=== PATIENT | male | born 1990 | race Caucasian/White ===

== ENCOUNTER 2020-10-12 15:07 | Emergency (ER) | payer OTHER, SELFPAY ==
--- NOTE | 2020-10-12 15:14 | ECG_ITS ---
Test Reason : CHEST PAIN Blood Pressure : / mmHG Vent. Rate : 084 BPM Atrial Rate : 084 BPM P-R Int : 136 ms QRS Dur : 102 ms QT Int : 342 ms P-R-T Axes : 084 072 049 degrees QTc Int : 404 ms Normal sinus rhythm Normal ECG No previous ECGs available Referred By: Paula Long Electronically Signed By:JEN ESTRADA
--- NOTE | 2020-10-12 15:14 | XR_ITS ---
EXAMINATION: XR CHEST CLINICAL INFORMATION: Chest pain COMPARISON: 02/17/2016 TECHNIQUE: 2 views of the chest were obtained. FINDINGS: No significant abnormality is noted involving the heart, lungs, mediastinum, bony thorax or soft tissues. XR/XR chest 2V IMPRESSION: Unremarkable examination.
[2020-10-12 15:23] VITALS: BP 148/93; PULSE 90; RESP 18; TEMP 37; O2SAT 98; BMI 50.3
--- NOTE | 2020-10-12 15:26 | ED.CHESTPAIN ---
HPI - Chest Pain General Chief Complaint: Chest Pain Stated Complaint: CHEST PAIN Time Seen by Provider: 10/12/20 15:14 Source: patient Mode of arrival: ambulatory Limitations: no limitations History of Present Illness HPI narrative: 30-year-old male otherwise healthy presented with 5 days of chest pain, patient describes the pain as a dull, constant for 5 days, localized to the mid chest area without radiation, worsening with deep breath and movement or touching the chest, nothing relieves the pain. No other associated symptoms, patient describes the pain as moderate 6/10, patient declined any recent trauma or strenuous activity to the chest recently. Related Data Allergies Allergy/AdvReac Type Severity Reaction Status Date / Time No Known Allergies Allergy Unverified 07/18/20 17:54 Review of Systems Review of Systems: All other systems are reviewed and are negative Constitutional: Reports as per HPI and Reports no additional constitutional complaints Eyes: Reports as per HPI and Reports no additional eye complaints Reports system reviewed and no additional complaints, except as documented Cardiovascular: Reports as per HPI and Reports no additional cardiovascular complaints Respiratory: Reports as per HPI and Reports no additional respiratory complaints Gastrointestinal: Reports as per HPI and Reports no additional gastrointestinal complaints Genitourinary: Reports no additional female genitourinary complaints Musculoskeletal: Reports no additional musculoskeletal complaints Skin/Breast: Reports system reviewed and no additional complaints, except as docu Psychiatric: Reports no additional psychiatric complaints Endocrine: Reports no additional endocrine complaints Hematologic/Lymphatic: Reports no additional hematologic/lymphatic complaints Allergic/Immunologic: Reports no additional allergic/immunologic complaints Reports system reviewed and no additional complaints, except as documented and Reports Abnormal speech present [facility] Past Medical History Medical History Asthma Social History Social History Advance Directives: No Advance Directives Information Provided: No Physical Exam Vital Signs: Vital Signs: Last Vital Signs Temp 98.6 F 10/12/20 15:23 Pulse 90 10/12/20 15:23 Resp 18 10/12/20 15:23 BP 148/93 H 10/12/20 15:23 Pulse Ox 98 10/12/20 15:23 Body Mass Index 50.3 Vital signs have been reviewed as normal and appeared to be correct. Blood pressure in the high range. Heart rate normal. Respiration rate normal. Temperature normal. Oxygen saturation normal. Appearance: Alert. Oriented X3. No acute distress. Head: Normal external exam. Normocephalic. Atraumatic. No Glaser signs noted. No raccoon eyes noted Eyes: PERRLA. EOMI. Conjunctiva and sclera normal. Eyelids normal. ENT: EAC normal. TM's Normal. Pharynx normal. Uvula midline. Moist mucous membranes. No trismus noted. No drooling noted. No muffled voice noted. Neck: Normal inspection. Neck supple. FROM. No adenopathy. Thyroid Normal. No meningeal signs. No neck mass noted. CVS: Normal heart rate and rhythm. Heart sound normal. No murmurs noted. Pulses normal throughout. Respiratory: No respiratory distress. Painless inspiration. Breath sounds normal. No wheezes/rales/rhonchi noted. Reproducible point of tenderness over the lower half of the sternum, no deformity. No accessory muscle usage noted or decreased air movement noted. Abdomen: Soft and nontender. Bowel sounds normal in all 4 quadrants. No distention noted. No organomegaly noted. No visible injury noted. Back: No CVA tenderness. Full range of motion noted. Skin: Skin warm and dry. Normal skin color. Normal skin turgor. No rashes/lesions/lacerations noted. Extremities: No lower extremity edema. Extremities exhibit normal range of motion. Extremities nontender. Neuro: Oriented X 3. No motor deficit. No sensory deficit. Reflexes normal. MDM - Chest Pain MDM Narrative Medical decision making narrative: 30-year-old male presented with few days of chest pain, patient had a negative troponin, negative D-dimer, unremarkable chest x-ray, unremarkable EKG, pain is reproducible. Will discharge the patient to follow up with PCP. Lab Data Result diagrams: 10/12/20 15:36 10/12/20 15:36 Labs: Lab Results 10/12/20 10/12/20 Range/Units 15:36 15:36 WBC 7.5 (4.8-10.8) X10*3/uL RBC 5.11 (4.60-5.80) X10*6/uL Hgb 15.2 (14.0-18.0) g/dl Hct 46.1 (42-52) % MCV 90.2 (80-98) fL MCH 29.7 (27.0-33.0) pg MCHC 33.0 (31.0-36.0) g/dl RDW 12.5 (11.0-16.0) % Plt Count 190 (160-400) X10*3/uL MPV 10.6 (9.4-12.4) fL Immature Gran % (Auto) 0.1 (0.0-0.4) % Neut % (Auto) 54.9 (45-73) % Lymph % (Auto) 30.8 (20-40) % [place] % (Auto) 9.7 (2-11) % Eos % (Auto) 4.0 (0-4) % Baso % (Auto) 0.5 (0-2) % Lymph # (Auto) 2.3 (1.2-4.9) X10*3/uL [place] # (Auto) 0.7 (0.1-1.2) X10*3/uL Eos # (Auto) 0.3 (0.0-0.4) X10*3/uL Baso # (Auto) 0.0 (0.0-0.2) X10*3/uL Abs Immat Gran (auto) 0.01 (0.00-0.03) X10*3/uL Absolute Neuts (auto) 4.1 (2.0-8.3) X10*3/uL Absolute Nucleated RBC 0.000 (0.0-0.012) X10*3/uL Nucleated RBC % (auto) 0.0 (0.0-0.2) /100WBC D-Dimer < 200 NG/ML Imaging Data Chest x-ray: Radiologist's impression: Mild left hydronephrosis is caused by 0.4 cm calculus located just proximal to the ureterovesical junction. ECG Data ECG #1: Interpretation: Normal sinus rhythm at 84 beats per minutes, normal intervals, no ST-T changes. Discharge Plan Discharge Clinical Impression: Atypical chest pain, Anterior chest wall pain Patient Disposition: Home, Self-Care Instructions: Chest Wall Pain (ED) Additional Instructions: Take Motrin 200 mg every 6 hours if needed for pain and apply heating pad to the tender area of his chest. Referrals: Physician,None [Primary Care Provider] - 2 days Stand Alone Forms: Work/School Release
[2020-10-12 15:46] LABS: Basophils Percent Auto 0.5 % (0-2); Eosinophils Absolute Auto 0.3 X10*3/uL (0.0-0.4); Hematocrit 46.1 % (42-52); Hemoglobin 15.2 g/dl (14.0-18.0); Imm Gran Abs Auto 0.01 X10*3/uL (0.00-0.03); Imm Gran Pct Auto 0.1 % (0.0-0.4); Lymphocytes Absolute Auto 2.3 X10*3/uL (1.2-4.9); Lymphocytes Percent Auto 30.8 % (20-40); MANUAL DIFF FLAG NO; Mean Corpuscular Hemoglobin 29.7 pg (27.0-33.0); Mean Corpuscular Volume 90.2 fL (80-98); Mean Platelet Volume 10.6 fL (9.4-12.4); Monocytes Absolute Auto 0.7 X10*3/uL (0.1-1.2); Monocytes Percent Auto 9.7 % (2-11); Neutrophils Absolute Auto 4.1 X10*3/uL (2.0-8.3); Neutrophils Percent Auto 54.9 % (45-73); Platelet Count 190 X10*3/uL (160-400); Red Blood Count 5.11 X10*6/uL (4.60-5.80); Red Cell Distribution Width 12.5 % (11.0-16.0); White Blood Count 7.5 X10*3/uL (4.8-10.8)
[2020-10-12 15:58] LABS: D Dimer < 200 NG/ML
[2020-10-12 16:19] LABS: Troponin-I High Sensitivity < 3.5 ng/L (<3.5-35.0)
[2020-10-12 16:24] LABS: Anion Gap 13 (12-20); Blood Urea Nitrogen 14 mg/dL (9-16); Calcium 8.9 mg/dL (8.4-10.2); Carbon Dioxide 26 mmol/L (22-29); Chloride 105 mmol/L (96-108); Creatinine Clr Calc Pharmacy 108.1; Estimated Glomerular Filt Rate > 60; Glucose Random 96 mg/dL (60-115); Lipase 28 U/L (8-78); Potassium 4.1 mmol/l (3.3-5.1); Sodium 140 mmol/L (135-145)
== END 2020-10-12 17:08 | disposition home or self-care (01) ==
PROVIDERS: Emergency Provider Emergency Medicine
DX: R07.89 Other chest pain (principal); J45.909 Unspecified asthma, uncomplicated
CPT/HCPCS: 36415; 71046; 80048; 83690; 84484; 85025; 85379; 93005; 99283

== ENCOUNTER 2023-05-30 09:02 | Emergency (ER) | payer BC, SELFPAY ==
[2023-05-30 09:03] VITALS: BP 128/58; PULSE 68; RESP 16; TEMP 36; O2SAT 97; BMI 26.5
--- NOTE | 2023-05-30 09:12 | ED_ITS ---
HPI - General Adult General Chief complaint: General Medical Stated complaint: Blood in stool Time Seen by Provider: 05/30/23 09:11 Source: patient Mode of arrival: ambulatory Limitations: no limitations History of Present Illness HPI narrative: Patient is a 33 year old assigned male at with no reported medical history presenting to the emergency department today with bright red blood in his stool. Patient states that over the last few years he has had bright red blood with his stool and he is concerned about hemorrhoids. Patient denies any dizziness, lightheadedness, abdominal pain, nausea, vomiting, fever, chills, blurry vision, double vision, loss of vision, chest pain, difficulty breathing, shortness of breath, back pain, night sweats, pain with urination, increased urinary frequency, increased urinary urgency, blood in his urine, syncope or a near syncopal episode, recent trauma or falls, bowel incontinence, bladder incontinence, bowel retention, bladder retention, or any other complaints at this time. Onset (ago): year(s) Severity: mild Relieving factors: none Exacerbating factors: none Associated symptoms: denies other symptoms Treatments prior to arrival: none Related Data Allergies Allergy/AdvReac Type Severity Reaction Status Date / Time No Known Allergies Allergy Verified 05/30/23 09:07 Review of Systems Constitutional: Constitutional: Reports no additional constitutional complaints, Denies chills, Denies fever(s) and Denies night sweats Eyes: Eyes: Reports no additional eye complaints, Denies blurry vision, Denies change in vision, Denies diplopia, Denies eye discharge, Denies loss of vision and Denies eye pain ENT: Denies dizziness Cardiovascular: Cardiovascular: Reports no additional cardiovascular complaints, Denies chest pain, Denies lightheadedness, Denies Loss of Consciousness and Denies dyspnea Respiratory: Respiratory: Reports no additional respiratory complaints and Denies dyspnea Gastrointestinal: Gastrointestinal: Reports no additional gastrointestinal complaints, Denies abdominal pain, Denies melena, Reports hematochezia, Denies change in bowel habits and Denies change in stool character Genitourinary: Genitourinary: Reports no additional male genitourinary complaints, Denies hematuria, Denies oliguria, Denies difficulty urinating, Denies dysuria, Denies urinary frequency, Denies urinary hesitancy, Denies urinary incontinence and Denies urinary urgency Musculoskeletal: Musculoskeletal: Reports no additional musculoskeletal complaints, Denies numbness and Denies tingling Neurologic: Denies dizziness, Denies loss of vision, Denies numbness and Denies tingling Psychiatric: Psychiatric: Reports no additional psychiatric complaints Endocrine: Endocrine: Reports no additional endocrine complaints Hematologic/Lymphatic: Hematologic/Lymphatic: Reports no additional hematologic/lymphatic complaints Allergic/Immunologic: Allergic/Immunologic: Reports no additional allergic/immunologic complaints [facility] Past Medical History Attestation statement: The following information was validated with the patient. Source: old records reviewed and nursing notes reviewed Medical History Asthma Social History Social History Smoked in Last 30 Days: Yes Use of substances other than those prescribed or required for medical reasons: Yes Substance Use Type: Marijuana Advance Directives: No Advance Directives Information Provided: Yes Physical Exam ED Vital Signs: Vital Signs - 24 hr 05/30/23 09:03 Temperature 96.8 F Pulse Rate 68 Respiratory Rate 16 Blood Pressure 128/58 L Pulse Oximetry 97 Oxygen Delivery Method Room Air BMI result Body Mass Index 26.5 Const General: cooperative, no acute distress, alert and awake Nutritional Appearance: well nourished Orientation/consciousness: patient oriented x3 Limitations: no limitations HENMT Head: Yes normal to inspection and Yes atraumatic Ears: hearing grossly normal bilaterally and external ears normal General nose exam: Normal external nose present, no nasal discharge noted and no epistaxis Face and sinus: Yes normal facial exam, No abrasion and No laceration Mouth: Normal oral and palatal mucosa present, no drooling and no muffled voice Eyes General: appearance normal, both eyes and all related structures Periorbital: periorbital findings normal Eyelids: Yes eyelids normal Conjunctivae: conjunctivae normal Pupils: Equal, round and reactive pupils present EOM: EOMs intact bilaterally Neck Neck: Yes normal visual inspection, Yes full ROM and Yes no lymphadenopathy Chest Chest palpation & inspection: normal inspection of the chest Resp Effort & Inspection: normal respiratory effort and able to speak in complete sentences GI Rectal Exam - Male: Yes External hemorrhoid(s) present (small at the 3 o'clock position) Neuro General: patient oriented x3 and moves all extremities Cranial nerves: Yes Equal, round and reactive pupils present Cognition (Neuro): normal cognition Motor exam (neuro): 5/5 motor strength present throughout Sensory Exam: Normal double simultaneous stimulation for sensation Coordination: [id number] test normal Extrem General: Yes normal to inspection, Yes full ROM and Yes capillary refill normal Psych Appearance: grossly normal Mental Status: mental status grossly normal Affect: normal affect Attitude: cooperative Thought process: Normal thought process present Thought content: Normal thought content present Insight: Good insight present (Psych) Medical Decision Making Medical Decision Making MDM Narrative: Patient is a 33 year old assigned male at with no reported medical history presenting to the emergency department today with bright red blood in his stool. Patient's physical exam showed a small hemorrhoid as noted in the physical exam portion of this chart. It should be noted that the patient's exam took place with an RN water supervisor. I explained my physical exam findings to the patient. I answered all questions asked by the patient. I stressed the importance of the patient taking his medication as prescribed. I stressed the importance of the patient following up with his primary care provider. I stressed the importance of the patient returning to the emergency department immediately if his symptoms were to worsen or if he were to develop any dizziness, shortness of breath, difficulty breathing, chest pain, blurry vision, loss of vision, nausea, vomiting, abdominal pain, fever, chills, back pain, or any other complaints. Patient verbalized agreement and understanding with this treatment plan and discharge. Differential Diagnosis Differential Diagnoses: The differential diagnosis associated with the presentation includes Hemorrhoid Discharge Plan Discharge Clinical Impression: Hemorrhoids, external Patient Disposition: Home, Self-Care Instructions: Hemorrhoids (DC) Additional Instructions: Follow up with your primary care provider and a general surgeon. Return to the emergency department immediately if your symptoms worsen or if you develop any dizziness, shortness of breath, difficulty breathing, chest pain, blurry vision, loss of vision, nausea, vomiting, abdominal pain, fever, chills, back pain, or any other complaints. Referrals: [facility] [place] General Surgeons [Provider Group] (Call to establish and follow up [facility]. ) [facility] [place]] (Call to establish and follow up with a primary care provider. If you already have a primary care provider, please follow up with them.) [facility] [place] [facility] [place]] (Call to establish and follow up with a primary care provider. If you already have a primary care provider, please follow up with them.) [facility] [place] [Provider Group] (Call to establish and follow up with a primary care provider. If you already have a primary care provider, please follow up with them.) Stand Alone Forms: Work/School Release Interventions: ED Discharge Assessment Last Done: 05/30/23 09:33 Discharge Date/Time: 05/30/23 09:34 Print Language: Kyrgyz
== END 2023-05-30 09:34 | disposition home or self-care (01) ==
PROVIDERS: Emergency Provider Student in an Organized Health Care Education/Training Program
DX: K64.4 Residual hemorrhoidal skin tags (principal)
CPT/HCPCS: 99283; 99284

== ENCOUNTER 2023-12-06 14:15 | Outpatient (AMB) | payer BC, SELFPAY ==
--- NOTE | 2023-12-06 14:34 | MHC.OFFVIS ---
Intake Vital Signs 12/06/23 14:38 Height 5 ft 2 in Weight 152 lb BMI 27.8 BP 142/63 H Blood Pressure Location Lt brachial Position Sitting Pulse 70 Intake Visit Reasons: External hemorrhoid Intake Note: This patient presents for an assessment for external hemorrhoids. Pt c/o; reports rectal bleeding about 7 months ago, reports moderate pain, reports no constipation. 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 He says that he has hemorrhoids for a few years now. He says that the past several months, this had been prolapsing each time he has a bowel movement. He says that he always has to push this back after bowel movements as this comes out all the time after passage of stools. He describes significant discomfort. He says that he used to have occasional bleeding with this hemorrhoids as well. [facility] Medical History (Updated 12/06/23 @ 14:52 by Jerad Ferreira MD) Hemorrhoids that prolapse with straining and require manual replacement back inside anal canal Asthma Surgical History No pertinent past surgical history Social History Substance Use Type: Marijuana Review of Systems Const Denies chills and Denies fever(s) Card Denies chest pain, Denies dyspnea and Denies dyspnea on exertion Resp Denies cough, Denies dyspnea and Denies dyspnea on exertion GI Denies hematochezia and Denies change in bowel habits Denies hematuria and Denies difficulty urinating Musc Denies back pain and Denies limited range of motion Neuro Denies focal weakness and Denies convulsions Psych Denies depression and Denies mood swings Physical Exam Vital Signs: Last Vital Signs Pulse 70 12/06/23 14:38 BP 142/63 H 12/06/23 14:38 BMI result Body Mass Index 27.8 Const General: comfortable and no acute distress Orientation/consciousness: patient oriented x3 Neck Neck: Yes no lymphadenopathy Resp Auscultation: clear to auscultation bilaterally Cardio Rhythm: regular rhythm GI Other: Rectal exam shows external hemorrhoids on the left Palpation (GI): Soft to palpation, nontender and no guarding Neuro General: patient oriented x3 Office Procedures Anoscopy He was in talia-knife position. The anoscope was gently inserted. A full examination of the anal canal was done. He was noted to have a bulky hemorrhoidal column, a mix of internal external on the left side. There were no other lesions. There was no bleeding. There was no fissure. There was no induration on digital exam. There was no significant tenderness [id number] Assessment & Plan Assessment & Plan (1) Hemorrhoids that prolapse with straining and require manual replacement back inside anal canal: Code(s): K64.2 - Third degree hemorrhoids Plan: He describes hemorrhoids as prolapse frequently. He wants to proceed with hemorrhoidectomy in view of the discomfort. I had a long discussion with him about the technique of exam under anesthesia and hemorrhoidectomy. I discussed the risks including but not limited to bleeding and infections and pain, as well as the benefits and alternatives. I reviewed with him what to expect postoperatively. He says he understands and wants to proceed. Coding Level of Care Code New Pt Level 3 (67470) Diagnoses Hemorrhoids that prolapse with straining and require manual replacement back inside anal canal K64.2 CPT Codes Details - CPT: 03216-[id number] ([id number])
[2023-12-06 14:38] VITALS: BP 142/63; PULSE 70; BMI 27.8
== END 2023-12-06 14:49 | disposition home or self-care (01) ==
PROVIDERS: Visit Provider Surgery
DX: K64.2 Third degree hemorrhoids (principal)
CPT/HCPCS: 46600; 99203

== ENCOUNTER → 2023-12-06 14:15 | Outpatient (BNVA) | payer BC, SELFPAY | PROVIDERS: Visit Provider Surgery | DX: K64.2 Third degree hemorrhoids (principal) | CPT/HCPCS: 46600 ==

== ENCOUNTER 2024-01-14 07:07 | Day surgery (SDC) | payer BC, SELFPAY ==
[2024-01-03 10:09] VITALS: BMI 27.8
[2024-01-03 10:17] VITALS: BMI 27.4
[2024-01-14] VITALS (9 sets, daily range): BP systolic 126–158; BP diastolic 66–83; PULSE 69–90; RESP 16–18; TEMP 36.7–37.6; O2SAT 97–100; BMI 27.4
[2024-01-14] MEDS: Lactated Ringers 1,000 ML 80 ML IVCONT (07:50)
--- NOTE | 2024-01-14 08:13 | HO.ANESPROP2 ---
HPI - Anesthesia Eval Consult details Narrative: Internal prolaping Hemmorhoids PMFSH Active Problems Active Problems: All Active Problems (Updated 01/03/24 @ 10:17 by Sunitha Bacon RN) Hemorrhoids that prolapse with straining and require manual replacement back inside anal canal (Acute) Past Medical History Medical History History of heartburn Hemorrhoids that prolapse with straining and require manual replacement back inside anal canal Asthma Family History Family history of problems with anesthesia: No Surgical History Surgical History No pertinent past surgical history History of Problems with Anesthesia: No Social History Social History Household Members Other:: mom Are you a primary animal care provider to a significant other at home: No Do you presently have visiting nurse or other home services: No Tobacco use type: Smokeless Tobacco Use of substances other than those prescribed or required for medical reasons: No Have you been hit, kicked, punched, or otherwise hurt by someone within the past year? If so, by whom?: No Are you DNR?: No Advance Directives: No Advance Directives Information Provided: Yes Advance Directives on File: No Recently lost weight without trying: No Nutrition Risks: No Nutritional Risk Poor oral hygiene: No Meds Allergies Allergy/AdvReac Type Severity Reaction Status Date / Time No Known Allergies Allergy Verified 01/14/24 07:57 Active Medications: Current Medications Lactated Ringer's (Lr) 1,000 mls @ 80 mls/hr IVCONT .[id number] [facility] Last Admin: 01/14/24 07:50 Dose: 80 mls/hr Home Medications Medication Instructions Recorded Confirmed Last Taken Type calcium carbonate 200 mg calcium mg PRN Heartburn 01/03/24 01/03/24 Unknown History (500 mg) chewable tablet (Tums) Exam Height,Weight and Vital Signs: Height 5 ft 2 in Weight 68.039 kg Last Vital Signs Temp 98.1 F 01/14/24 07:56 Pulse 69 01/14/24 07:56 Resp 18 01/14/24 07:56 BP 129/66 01/14/24 07:56 Pulse Ox 98 01/14/24 07:56 O2 Del Method Room Air 01/14/24 07:56 Airway Mallampati Class: II TM Dist: >3cm Neck ROM: Full Loose/Missing/Broken Teeth: Yes (invisalign 2 upper front teeth chipped) Heart: [id number] Lungs: cta b/l Assessment and Plan Assessment Anesthesia Assessment: Anesthesia Plan Discussed, Smoking Cess. Discussed and Chart Reviewed Final Anesthetic Review Family History of Problems with Anesthesia: No History of Problems with Anesthesia: No NPO: Yes ASA Class: II Final Preanesthetic Review: No Changes in Pt Med Stat, Meds/Allgs Chart Reviewed, Consent Obtained/Reviewed and Anes Risks/Benef Reviewed Patient Risk: Intermediate Procedure Risk: Low Anesthetic Plan Anesthetic Plan: GA Disposition: Standard PACU
--- NOTE | 2024-01-14 08:41 | MHC.SHP ---
Pre-Procedural Eval Section A - 24 Hr Update-Section A only Date of Service: 01/14/24 Section B - Complete if H&P > 30 days Chief Complaint: Third degree hemorrhoids Details of Present Illness: has had prolapsing hemorrhoids Relevant Family History (Specify if Yes): No Relevant Social History: None Present Medications: see Short Stay Collaborative assessment Medical History: No relevant PMH Allergies: Allergies Allergy/AdvReac Type Severity Reaction Status Date / Time No Known Allergies Allergy Verified 01/14/24 07:57 Review of Systems Sugical H&P ROS: Negative: Constitution, Cardiovascular, Respiratory, Neurological, Psychiatric, Hem-Onc, Allergic/Immunologic, Gastrointestinal, Genitourinary, Musculoskeletal, Integumentary, Endocrine and Eyes/Ears/Nose/Throat Exam Surgical H&P Exam: Normal: HEENT, Normal: Heart, Normal: Lungs, Normal: Extremities, Normal: Abdomen, Normal: Skin and Normal: Neurological Exam Comment: internal and external hemorrhoids Plan I have reviewed the history and physical and performed a pertinent physical examination on my patient. No changes have occurred unless specified. Time Spent With Patient Time: Total time managing care of this patient today ____ minutes.
--- NOTE | 2024-01-14 09:37 | P.OP_ITS ---
Operative Note Operative Note Date of Service: 01/14/24 Narrative: Preop Diagnosis prolapsing hemorrhoids Postop diagnosis: Prolapsing hemorrhoids, internal external Procedure: Exam under anesthesia hemorrhoidectomy x2 columns Surgeon: Jerad Ferreira MD The patient is a 33-year-old male with a long history of prolapsing hemorrhoids with associated with pain and bleeding. He wanted to proceed with hemorrhoidectomy. He understood the technique of the procedure as well as the risks, benefits, and alternatives He was brought to the operating room. He was placed in prone talia-knife position under general anesthesia via endotracheal tube. The buttocks were retracted with wide tape laterally. The perianal area was prepped and draped in the usual sterile fashion. A surgical time-out was done. The patient received Cefotan 2 g IV preoperatively I infiltrated the perianal area with lidocaine 1%. Examination of the anal orifice revealed external hemorrhoids on both the left and right side. I inserted the Tiffany Ahuja retractor. I examined the anal canal circumferentially. Again this hemorrhoidal columns were seen on both the left and right side I were noted to be a mix of internal external. This appeared to be moderate size and seemed to prolapse easily I applied a Zayas clamp at the hemorrhoidal column on the right to retract this out into the field. I made a [id number]-rc-xssfr stitch at the pedicle using a chromic 3-0. I made an incision around this hemorrhoidal column to the perianal skin with a blade 15. I incised the hemorrhoidal column above the plane of the sphincters along this incision using scissors. I closed this incision with a ru nning chromic 3-0 stitch. Additional hemostatic fmmvou-dl-szbal sutures were placed I duplicated the procedure on the left hemorrhoidal column. This was retracted out into the field with a Zayas clamp. I made a xnqwim-zc-kkfbw stitch at the pedicle. I made an incision around this with a blade 15. I excised this hemorrhoidal column above the plane of the sphincters along this incision with scissors. I closed this incision with a running chromic 3-0 stitch. Additional multiple hemostatic pnfzzu-ig-tvfwx sutures were placed for oozing areas. Once hemostasis was confirmed, I proceeded to then treated the perianal area with Marcaine 0.5% for postop analgesia. A rolled Gelfoam packing was inserted into the anal canal for additional hemostasis We confirmed hemostasis. The procedure was completed The patient tolerated procedure well. There were no immediate complications. Initial and final counts of sponges and instruments were correct estimated blood loss about 50 cc The patient was extubated without difficulty and transferred to the recovery room with stable vital signs.
[2024-01-14] MEDS: oxyCODONE HCl Immed Release 5 MG TABLET PO (09:54)
[2024-01-14] MEDS: fentaNYL citrate/PF 100 MCG/2 ML VIAL 50 MCG IVPUSH (10:05)
== END 2024-01-14 11:00 | disposition home or self-care (01) ==
PROVIDERS: Visit Provider Surgery
PROC: (CPT 46260; principal; 2024-01-14 09:00)
DX: K64.2 Third degree hemorrhoids (principal); J45.909 Unspecified asthma, uncomplicated
CPT/HCPCS: 46260; 88304; J0131; J2250; J2704; J2795; J3010

== ENCOUNTER → 2024-01-14 07:07 | Outpatient (BNV) | payer BC, SELFPAY | PROVIDERS: Visit Provider Surgery | DX: K64.8 Other hemorrhoids (principal) | CPT/HCPCS: 46260 ==